=== PATIENT | female | born 1955 | race Caucasian/White ===

== ENCOUNTER → 2023-11-09 18:18 | Outpatient (REF) | payer OTHER, SELFPAY | LOC: RAD 18:18 | PROVIDERS: ATTENDING PHYSICIAN Family Medicine | DX: M25.551 Pain in right hip (principal); M25.511 Pain in right shoulder | CPT/HCPCS: 73030; 73502 ==

== ENCOUNTER → 2023-11-10 13:50 | Outpatient (REF) | payer OTHER, SELFPAY | LOC: HWRAD 13:50 | PROVIDERS: ATTENDING PHYSICIAN Family Medicine | DX: K76.0 Fatty (change of) liver, not elsewhere classified (principal); R91.1 Solitary pulmonary nodule | CPT/HCPCS: 71250; 74177; Q9967 ==

== ENCOUNTER → 2024-01-05 14:10 | Outpatient (REF) | payer OTHER, SELFPAY | LOC: RAD 14:10 | PROVIDERS: ATTENDING PHYSICIAN Family Medicine | DX: M85.80 Other specified disorders of bone density and structure, unspecified site (principal); I65.23 Occlusion and stenosis of bilateral carotid arteries | CPT/HCPCS: 77080; 93880 ==

== ENCOUNTER → 2025-05-10 14:54 | Outpatient (REF) | payer OTHER, SELFPAY | LOC: RCS 14:54 | PROVIDERS: ATTENDING PHYSICIAN Family Medicine | DX: I10 Essential (primary) hypertension (principal); R06.09 Other forms of dyspnea; R94.31 Abnormal electrocardiogram [ECG] [EKG] | CPT/HCPCS: 93306 ==

== ENCOUNTER → 2025-06-12 14:14 | Outpatient (REF) | payer OTHER, SELFPAY | LOC: REG 14:14 | PROVIDERS: ATTENDING PHYSICIAN Family Medicine | DX: K76.9 Liver disease, unspecified (principal); R19.09 Other intra-abdominal and pelvic swelling, mass and lump; R91.1 Solitary pulmonary nodule | CPT/HCPCS: 71250; 74178; Q9967 ==